=== PATIENT | female | born 1950 | race Caucasian/White ===

== ENCOUNTER 2018-04-15 16:53 | Emergency (ER) | payer SELFPAY ==
[~2018-04-15] VITALS: Ht 152.4 cm; Wt 77.3 kg
[2018-04-15 17:08] VITALS: BP 131/79
[2018-04-15] MEDS ORDERED: FLUT16H NASAL (17:15)
[2018-04-15] MEDS ORDERED: BUDE10.2 IH (17:15)
== END 2018-04-15 18:18 | disposition left against medical advice (07) ==
LOC: EMS 16:54
DX: Z53.21 Procedure and treatment not carried out due to patient leaving prior to being seen by health care provider (principal)

== ENCOUNTER → 2018-04-22 | Day surgery (SDC) | payer MEDICARE, OTHER ==
[~2018-04-22] VITALS: Ht 149.9 cm; Wt 77.7 kg
[~2018-04-22] MED LIST: ALBUTEROL SULFATE 2.5 MG/0.5 ML NEB SOLUTION NEB ONE; BENZOCAINE 20% 50 MCG/SPRAY 57 GM TP ONE; BUDE10.2 IH; EPINEPHrine 1:1,000 [1 MG/ML] AMP SQ ONE; FLUT16H NASAL; FentaNYL CITRATE-PF 100 MCG/2 ML VIAL ONE; LIDOCAINE HCL 2% 30 ML JELLY TP ONE; LIDOCAINE HCL 4% 50 ML SOLUTION TP ONE; MIDAZOLAM HCL 2 MG/2 ML VIAL ONE; MethylPREDNISolone SOD SUCC 125 MG/2 ML VIAL IVP ONE; MethylPREDNISolone SOD SUCC 125 MG/2 ML VIAL ONE; OXYGEN THERAPY IH SCH; SODIUM CHLORIDE 0.9% 1,000 ML IV ONE
[2018-04-22 07:08] LABS: GLUCOMETER DEV NAME(LOC) SDS 5; GLUCOSE,POINT OF CARE 81 MG/DL (70-110)
== END | disposition home or self-care (01) ==
LOC: SURGERY 05:49
PROVIDERS: ATTEND Internal Medicine Critical Care Medicine
DX: J38.4 Edema of larynx (principal); B37.0 Candidal stomatitis; J45.998 Other asthma; Z88.5 Allergy status to narcotic agent; Z91.018 Allergy to other foods; Z90.89 Acquired absence of other organs; Z90.49 Acquired absence of other specified parts of digestive tract; Z88.8 Allergy status to other drugs, medicaments and biological substances; Z98.890 Other specified postprocedural states; Z79.899 Other long term (current) drug therapy
CPT/HCPCS: 31623; 31624; 71045; 82962; 87015; 87070; 87101; 87205; 87206; 87220; 88108; 88312; J0171; J2250; J2930; J3010; J7030

== ENCOUNTER 2019-02-10 05:50 | Day surgery (SDC) | payer MEDICARE, OTHER ==
[~2019-02-10] VITALS: Ht 149.9 cm; Wt 76.4 kg
[~2019-02-10 05:50] MED LIST changes: -ALBUTEROL SULFATE 2.5 MG/0.5 ML NEB SOLUTION NEB ONE; -BENZOCAINE 20% 50 MCG/SPRAY 57 GM TP ONE; -EPINEPHrine 1:1,000 [1 MG/ML] AMP SQ ONE; -FentaNYL CITRATE-PF 100 MCG/2 ML VIAL ONE; -LIDOCAINE HCL 2% 30 ML JELLY TP ONE; -LIDOCAINE HCL 4% 50 ML SOLUTION TP ONE; -MIDAZOLAM HCL 2 MG/2 ML VIAL ONE; -MethylPREDNISolone SOD SUCC 125 MG/2 ML VIAL IVP ONE; -MethylPREDNISolone SOD SUCC 125 MG/2 ML VIAL ONE; -OXYGEN THERAPY IH SCH; -SODIUM CHLORIDE 0.9% 1,000 ML IV ONE
[2019-02-10] MEDS ORDERED: LIDOCAINE 2% 11 ML JELLY TP ONE (05:51)
[2019-02-10] MEDS ORDERED: ALBUTEROL SULFATE 2.5 MG/0.5 ML NEB SOLUTION NEB ONE (05:51)
[2019-02-10] MEDS ORDERED: LIDOCAINE 4% 50 ML SOLUTION TP ONE (05:51)
[2019-02-10] MEDS ORDERED: BENZOCAINE 20% 50 MCG/SPRAY 57 GM TP ONE (05:51)
[2019-02-10] MEDS ORDERED: SODIUM CHLORIDE 0.9% 1,000 ML IV ONE ×2 (06:16→07:45)
[2019-02-10] MEDS ORDERED: MIDAZOLAM HCL 2 MG/2 ML VIAL ONE (08:07)
[2019-02-10] MEDS ORDERED: FentaNYL CITRATE-PF 100 MCG/2 ML VIAL ONE (08:07)
[2019-02-10] MEDS ORDERED: MethylPREDNISolone SOD SUCC 125 MG/2 ML VIAL IVP ONE (08:45)
[2019-02-10] MEDS ORDERED: OXYGEN THERAPY IH SCH (20:00)
== END 2019-02-10 11:00 | disposition home or self-care (01) ==
LOC: SURGERY 05:50
PROVIDERS: ATTEND Internal Medicine Critical Care Medicine
DX: J38.4 Edema of larynx (principal); B37.0 Candidal stomatitis; Z98.890 Other specified postprocedural states
CPT/HCPCS: 31623; 31624; 71045; 87015; 87070; 87101; 87205; 87206; 87220; 88108; 88312; J2250; J2930; J3010; J7030